=== PATIENT | male | born 1995 ===

== ENCOUNTER 2025-03-13 22:26 | Emergency (ER) | payer SELFPAY ==
[2025-03-13 22:43] VITALS: BP 101/63; PULSE 86; RESP 16; TEMP 36.7; O2SAT 100
--- NOTE | 2025-03-14 01:01 | PC.NURSE ---
This RN called pt to bring back to a room, no answer. Pt was called multiple times.
--- OUTSIDE RECORDS SUMMARY | 2025-03-14 01:34 | XMS_ITS | Patient Health Record ---
Author Organization Formerly [facility], 1928–[address] Address [address] [place] [address] Care Team Providers Care Occupational Health And Safety Officer Name Role Phone Jayne Juanamber Primary Care Provider [phone] Kaila Farrell Unavailable Unavailable Allergies Allergen (clinical drug ingredient) Drug/Non Drug Allergy documented on EMR Reaction Allergy Type Onset Date Status muscle relaxers (uncoded) Unknown Allergy Active nuts (uncoded) Unknown Allergy Activ e risperidone Risperdal Unknown Drug Allergy Inact angelica codeine Codeine Unknown Drug Allergy Active Reason For Referral No Information Medications Medication SIG (Take, Route, Frequency, Duration) Notes Start Date End Date Status RisperDAL 2 MG 1 tablet Orally Once a day; Duration: 30 days Active diphenhydrAMINE HCl 25 MG 1 tablet Orall y twice a day Active Benztropine Mesylate 1 MG 1 tablet Orall y Once a day; Duration: 30 days Active Remeron 15 MG 1 tablet at bedtime Orally at bedtime; Duration: 30 days 06/08/2016 Not-Taking Social History Tobacco Use: Social History Observation Description Date Details (start date - stop date) Heavy tobacco s moker NA - NA Sex Assigned At : Social History Observation Description Sex Assigned At Male Dont use, Tobacco Use/Smoking Question Answer Notes Are you a heavy tobacco smoker Problems Problem Type SNOMED Code ICD Code Onset Dates Problem Status W/U Status Risk Notes Problem Schizoaffective disorder, bipolar type (68376197) Schizoaffective disorder, bipolar type (F25.0) Active confirmed Problem Mood disorder (36350930) Mood disorder (F39) Active confirmed Plan Of Treatment No Information Insurance Providers Payer Name Payer Address Payer Phone Subscriber Number Group Number Insured Name Patient Relationship to Insured Coverage Start Date Coverage End Date [facility] Attn Claims Department [address] [place] [address] [phone] [id number] Papito LemusTiaIvan Self - patient is the insured 6 9 MEDICAID [address] [place] [address] [id number] Papito LemusTiaIvan Self - patient is the insured [address] [address] [id number] Papitoclem LemusIvan Self - patient is the insured [address] [address] [id number] Papito LemusTiaIvan Self - patient is the insured 2 Medical (General) History Surgical History Surgery Date(Month/Year) Pins in knee Hospitalization History Reason Date(Month/Year) - [facility]
== END 2025-03-14 01:01 | disposition left against medical advice (07) ==
DX: M25.572 Pain in left ankle and joints of left foot (principal)
CPT/HCPCS: 99199